=== PATIENT | female | born 1995 | race Caucasian/White ===

== ENCOUNTER 2023-03-11 19:57 | Emergency (ER) | payer SELFPAY ==
[2023-03-11 19:59] VITALS: BP 118/84; PULSE 89; RESP 18; TEMP 37.2; O2SAT 100
[2023-03-11] MEDS: TETRACAINE HCL 0.5% OPHTH SOLN 4 ML BTL 1 DROP EACH EYE (20:55)
--- NOTE | 2023-03-11 21:08 | ED.EYEPROB ---
HPI - Eye Problem General Chief complaint: Eye Problems Stated complaint: Eye Time Seen by Provider: 03/11/23 20:00 Source: patient and family Mode of arrival: ambulatory Limitations: no limitations History of Present Illness HPI Narrative: 27-year-old female, previously healthy, presents to the emergency room with mom due to acute onset, severe and excruciating bilateral eye pain ( right worse than left) that started this morning and progressively has gotten worse throughout the day. Pain now is intolerable. patient stated that her vision is intact. Patient kept her eyes closed most of the time. Has some light sensitivity and associated headache. She wears contact lens and noticed symptoms when she put on contact lenses this morning. She denied any other eye injury. She never had symptoms like this before. Family history is significant for a brother with diabetes type 1 and mom with rheumatoid arthritis. chief complaint: eye pain and eye redness Onset (ago): hour(s) Onset description: sudden Duration: constant Location: both eyes Eye Symptoms: redness, pain, decreased vision and photophobia Mechanism: none Severity: severe Severity scale (1-10): >10 If Pain, Quality: sharp and stabbing Context: contact lens use Associated symptoms: headache Treatments Prior to Arrival: none Related Data Allergies Allergy/AdvReac Type Severity Reaction Status Date / Time No Known Allergies Allergy Verified 03/11/23 20:55 Review of Systems Constitutional: Constitutional: Reports as per HPI and Reports no additional constitutional complaints Eyes: Eyes: Reports as per HPI and Reports no additional eye complaints ENT: Reports system reviewed and no additional complaints, except as documented and Reports as per HPI Cardiovascular: Cardiovascular: Reports as per HPI and Reports no additional cardiovascular complaints Respiratory: Respiratory: Reports as per HPI and Reports no additional respiratory complaints Gastrointestinal: Gastrointestinal: Reports as per HPI and Reports no additional gastrointestinal complaints Genitourinary: Genitourinary: Reports as per HPI Musculoskeletal: Musculoskeletal: Reports no additional musculoskeletal complaints and Reports as per HPI Integumentary/Breasts: Skin/Breast: Reports system reviewed and no additional complaints, except as docu and Reports as per HPI Neurologic: Reports system reviewed and no additional complaints, except as documented and Reports as per HPI Psychiatric: Psychiatric: Reports no additional psychiatric complaints and Reports as per HPI Endocrine: Endocrine: Reports no additional endocrine complaints and Reports as per HPI Hematologic/Lymphatic: Hematologic/Lymphatic: Reports no additional hematologic/lymphatic complaints and Reports as per HPI Allergic/Immunologic: Allergic/Immunologic: Reports no additional allergic/immunologic complaints and Reports as per HPI Exam Const: General: healthy appearing and no acute distress Nutritional Appearance: well nourished Orientation/consciousness: patient oriented x3 HENMT: Head: normal to inspection Ears: external ears normal Face/Nose/Sinus: Normal external nose present Face and sinus: normal facial exam Mouth: Yes Normal oral and palatal mucosa present Eyes: Pupils: Equal, round and reactive pupils present Other: Bilateral conjunctival injection/erythema, copious tears. Resp: Effort & Inspection: normal respiratory effort Auscultation: clear to auscultation bilaterally Cardio: Rate: regular rate Rhythm: regular rhythm Skin: General skin exam: normal color Rashes: no rashes Wounds: no wounds Neuro: General: patient oriented x3 Cranial nerves: Yes Nystagmus not present Speech: normal speech Psych: Mental Status: mental status grossly normal Course Vital Signs Vital signs: Vital Signs Temperature 98.9 F 03/11/23 19:59 Pulse Rate 89 03/11/23 19:59 Respiratory Rate 18 03/11/23 19
[2023-03-11] MEDS: KETOROLAC 30 MG/ML VIAL (*BKC) IM (21:23)
[2023-03-11] MEDS: MORPHINE SULFATE (*CRX) 4 MG/ML INJ IM (21:23)
[2023-03-11 21:30] VITALS: BP 122/87; PULSE 68; RESP 18; O2SAT 99
[2023-03-11 23:26] VITALS: BP 115/75; PULSE 77; RESP 18; TEMP 37; O2SAT 100
== END 2023-03-11 23:28 | disposition short-term general hospital (02) ==
PROVIDERS: Emergency Provider Emergency Medicine
DX: H20.9 Unspecified iridocyclitis (principal)
CPT/HCPCS: 96372; 99284; J1885; J2270